=== PATIENT | female | born 1950 | race Caucasian/White ===

== ENCOUNTER → 2018-01-24 09:30 | Outpatient (CLI) | payer OTHER, SELFPAY ==
[2018-01-24 10:26] LABS: Calcium 8.4 mg/dL (8.4-10.2)
[2018-01-24 10:55] LABS: Thyroid Stimulating Hormone 2.03 uIU/mL (0.47-4.68)
[2018-01-27 14:01] LABS: Parathyroid Hormone Int 74 pg/mL (14-64)
== END ==
PROVIDERS: PCP Family Medicine; Visit Provider Internal Medicine Endocrinology, Diabetes & Metabolism
DX: E83.51 Hypocalcemia (principal); Z86.39 Personal history of other endocrine, nutritional and metabolic disease
CPT/HCPCS: 36415; 82310; 83970; 84443

== ENCOUNTER → 2018-02-12 07:48 | Outpatient (CLI) | payer OTHER, SELFPAY ==
[2018-02-12 10:06] LABS: Calcium 9.3 mg/dL (8.4-10.2)
[2018-02-12 10:22] LABS: Vitamin D 25 Hydroxy (D3) 35.9 ng/mL (30.0-100.0)
[2018-02-12 10:35] LABS: Thyroid Stimulating Hormone 0.96 uIU/mL (0.47-4.68)
[2018-02-12 10:43] LABS: Cortisol AM (Before 10AM) 1.09 ug/dL (4.46-22.7)
[2018-02-12 11:28] LABS: Ferritin 18.8 ng/mL (11.1-264)
== END ==
PROVIDERS: PCP Family Medicine; Visit Provider Family Medicine
DX: G25.81 Restless legs syndrome (principal); E83.51 Hypocalcemia; Z86.39 Personal history of other endocrine, nutritional and metabolic disease; E56.9 Vitamin deficiency, unspecified
CPT/HCPCS: 36415; 82306; 82310; 82533; 82728; 83970; 84443

== ENCOUNTER → 2018-07-31 15:41 | Outpatient (CLI) | payer OTHER, SELFPAY ==
[2018-07-31 17:19] LABS: Calcium 9.7 mg/dL (8.4-10.2)
[2018-07-31 17:32] LABS: Vitamin D 25 Hydroxy (D3) 55.6 ng/mL (30.0-100.0)
[2018-07-31 17:44] LABS: Thyroid Stimulating Hormone 1.09 uIU/mL (0.47-4.68)
[2018-08-04 14:25] LABS: Parathyroid Hormone Int 30 pg/mL (14-64)
== END ==
PROVIDERS: PCP Family Medicine; Visit Provider Internal Medicine Endocrinology, Diabetes & Metabolism
DX: E83.51 Hypocalcemia (principal); Z86.39 Personal history of other endocrine, nutritional and metabolic disease; E55.9 Vitamin D deficiency, unspecified
CPT/HCPCS: 36415; 82306; 82310; 83970; 84443

== ENCOUNTER → 2018-09-11 16:16 | Outpatient (CLI) | payer OTHER, SELFPAY ==
--- NOTE | 2018-09-11 16:18 | DI.RAD.S_ITS ---
PROCEDURE: XR TOE RT MIN 2V INDICATIONS: previous fracture of right big toe TECHNIQUE: 3 views of the first toe(s) acquired. COMPARISON: [facility], CR, XR FOOT 3VW LT, 11/22/2015, 11:08. FINDINGS: Bones: No definite acute fractures or dislocations found, but there is what appears to be a mildly comminuted healing fracture involving the middle and distal thirds of the first proximal phalanx. No suspicious bony lesions. Soft tissues: No suspicious soft tissue densities. IMPRESSION: Healing first proximal phalanx fracture in virtual anatomic alignment. Dictated by: Robson Hurst M.D. on 09/11/2018 at 16:41 Approved by: Robson Hurst M.D. on 09/11/2018 at 16:43
== END ==
PROVIDERS: PCP Family Medicine; Visit Provider Family Medicine
DX: S92.421D Displaced fracture of distal phalanx of right great toe, subsequent encounter for fracture with routine healing (principal)
CPT/HCPCS: 73660

== ENCOUNTER → 2018-09-24 10:23 | Outpatient (CLI) | payer OTHER, SELFPAY | PROVIDERS: PCP Family Medicine; Visit Provider Internal Medicine Endocrinology, Diabetes & Metabolism | DX: M85.851 Other specified disorders of bone density and structure, right thigh (principal); Z78.0 Asymptomatic menopausal state; E07.9 Disorder of thyroid, unspecified; E21.3 Hyperparathyroidism, unspecified; K92.9 Disease of digestive system, unspecified; Z90.722 Acquired absence of ovaries, bilateral; Z87.891 Personal history of nicotine dependence | CPT/HCPCS: 77080 ==

== ENCOUNTER → 2018-12-07 11:22 | Outpatient (CLI) | payer OTHER, SELFPAY | PROVIDERS: PCP Family Medicine; Visit Provider Physician Assistant | DX: J02.9 Acute pharyngitis, unspecified (principal) | CPT/HCPCS: 87070 ==

== ENCOUNTER 2019-02-04 10:30 | Outpatient (RCR) | payer OTHER, SELFPAY ==
--- NOTE | 2019-02-02 17:35 | PT.OPPOC ---
Current Diagnoses Pain in unspecified hip (02/02/19) Provider Visit Care Team Role Provider Type Adri Garrett DO Primary Care Provider Physician Specialty: [facility] Address: [address] [place] [address], [address] Email: [email or web address] ARLEN Funes Attending Provider Advanced Reed Or Wind Instrument Repairer Specialty: [facility] Address: [address] [place] [address], [id number] Email: Plan Of Care PT-OP-T Assessment and Plan Start: 02/02/19 10:30 Freq: Status: Active Protocol: Document 02/02/19 17:35 EA (Rec: 02/03/19 15:58 EA [id number]) Physical Therapy Assessment Rehab Potential Rehabilitation Potential Good Evaluation Complexity Number of Personal Factors/Comorbidities 3 or More Number of Body Systems Impaired 3 Clinical Presentation at Evaluation Evolving Impairments Impairments Pain Posture ROM Soft Tissue Mobility Strength Goals Three Impairment Impaired distance mobility Residential Goal (LTG) Patient will ambulate > 2 miles with no increase of symptoms LTG Duration 5 wks Two Impairment LEFS score of 40/80 Residential Goal (LTG) LEFS score of > 55/80 LTG Duration 5 wks One Impairment No HEP in place Sink Cutter Goal (LTG) Patient will exhibit independent safe home exercises program to improve recovery LTG Duration 4 wks Assessment Summary Assessment Pleasant 68 y/o female patient with a referring diagnosis of LBP and hip pain. Today patient presented with mobility difficulty due to left hip pain. Assessment reveals left hip joint dysfunction with tests positive for hip joint DJD and bursitis. Lumbosacral tests reveals SI joint dysfunction with possible muscular strain to lumbosacral region. In addition from history taking of her regular physical activities, patient possible performing exercises with faulty form that may be the cause of low back issues. Patient shows no neural compression affectation. Due to above mentioned dysfunction, patient unable to perform full functional tasks that she was used to perform without limitation. Patient would greatly benefit with skilled PT to address the issue. Physical Therapy Plan Frequency and Duration Frequency of Treatment 2x/Week Duration of Treatment 8 wks Plan of Care Start Date 02/02/19 Plan of Care End Date 04/06/19 Therapeutic Interventions Therapeutic Interventions Gait Training Home Exercise Program Joint Mobilizations Manual Therapy Patient/Caregiver Education Self-Care/Home Management Modalities Electric Stimulation Hot Packs Iontophoresis Ultrasound Next Visit Focus/Plan Next Note Type Treatment Note Next Visit Plan HEP with images; flexibiity, manual and modalities for pain . Plan of Care Dates Plan of Care Start Date 02/02/19 Plan of Care End Date 04/06/19 Please Sign and Return: I have reviewed this Plan of Care and certify that the skilled therapy services above are required to meet the patient?s needs. Physician Signature Date Printed Name and Credentials Clinical Instructor Signature Printed Name and Credentials
--- NOTE | 2019-02-02 17:35 | PT.OIE ---
Current Diagnoses Pain in unspecified hip (02/02/19) Past Medical History (Last Reviewed 06/02/18 @ 11:06 by Adri Garrett DO) Essential tremor (Chronic ~1995) Fibromyalgia (Chronic ~1994) Gastroenteritis (Chronic ~2013) Hypothyroidism (Chronic) Osteoporosis (Chronic ~2014) Tenosynovitis, de Quervain (Chronic ~2014) Ulcer (Chronic ~2013) Past Surgical History (Last Reviewed 06/02/18 @ 11:06 by Adri Garrett DO) Status post hysterectomy Status post parathyroidectomy Provider Visit Care Team Role Provider Type Adri Garrett DO Primary Care Provider Physician Specialty: [facility] Address: [address] [place] [address] Email: [email or web address] ARLEN Funes Attending Provider Advanced Auditing Control Clerk Specialty: [facility] Address: [address] [place] [address] Email: Physical Therapy Initial Evaluation PT-OP-A Visit Information Start: 02/02/19 10:30 Freq: Status: Active Protocol: Document 02/02/19 17:35 EA (Rec: 02/03/19 15:58 EA [id number]) Out-Patient Physical Therapy Visit Information Visit Information Visit Type Initial Evaluation Visit Start Time 09:45 Visit Stop Time 10:30 Total Visit Minutes 40 Visit Number 1 Evaluation Information Evaluation Date 02/02/19 PT-OP-B Current Condition Start: 02/02/19 10:30 Freq: Status: Active Protocol: Document 02/02/19 17:35 EA (Rec: 02/03/19 15:58 EA [id number]) Current Condition History of Current Condition Onset Date a year ago Current Complaints Low back and left localized pain History of Current Condition Patient reports present condition of low back and left hip pain started gradually since 2 years ago; she denies any significant injury or medical history that could relate to the issues. She reports she likes to perform outdoor walks, yoga and abdominal exercises. She mentioned that pain management was mainly with heat and rests. She reports that elbow pain complaint is not the issue anymore and would like to eliminate as the complaints . Prior Treatments and Tests None identified to treatment and diagnostic imaging Future Testing and Treatments Planned Non identified. Treatment Goals Patient/Caregiver Goals 1. I wanna be more mobile 2. I would like to go for the trip this march Prior Functional Status Baseline Function- ADL's Independent Baseline Function- Mobility Independent Baseline Function- Gait > 2 miles with no symptoms a year ago Baseline Function- Work/School Retired Baseline Function- Recreation/Hobbies Able to perform fitness exercises, daily outdoor walking, yoga classes Current Functional Impairments (Reported) Functional Limitations- ADL's Independent but diifculty with activities that requires bending and lifting on days of increased symptoms Functional Limitations- Mobility/Gait Indep with no AD Functional Limitations- Work/School Retired Functional Limitations- Recreation/ Unable to perform regular Hobbies fitness exercises, Personal Factors Other Personal Factors That May Effect Fibromyalgia, Depression, Therapy/Recovery osteoporosis, controlled BP, intention tremor. PT-OP-C Subjective Start: 02/02/19 10:30 Freq: Status: Active Protocol: Document 02/02/19 17:35 EA (Rec: 02/03/19 15:58 EA [id number]) OP-PT Subjective Patient Comments Patient Comments I would like to go in the trip this march without limitation. Patient Reported Progress Worse Patient Questionnaires Lower Extremity Functional Scale LEFS Score 40 LEFS Impairment 40 to 59% Impaired (Score 32- 47) OP-PT Pain Assessment Pain Assessment Grid Paper Pain Assessment Grid Completed Yes Location Bilateral Lower Back Pain Location Details low back, left hip Intensity 6 Description Aching Pulling Tightness Frequency Intermittent Pain Aggravating Factors Changing Position Activity Exercise Pain Alleviating Factors Cold Heat Exercise Massage Other Pain Alleviating Factors Stertching PT-OP-J Posture/Palpation/Skin Start: 02/02/19 10:30 Freq: Status: Active Protocol: Document 02/02/19 17:35 EA (Rec: 02/03/19 15:58 EA [id number]) Palpation Assessment Location One Palpation Location Lumbosacral fascia, quadratus lumborum, paralumbars SI joint , ITB Palpation Findings Soft Tissue Tightness Tenderness PT-OP-K Range of Motion Start: 02/02/19 10:30 Freq: Status: Active Protocol: Document 02/02/19 17:35 EA (Rec: 02/03/19 15:58 EA [id number]) Lumbar Spine Range of Motion Lumbar Spine Active Percentage Testing Position Standing Flexion 100 Extension 90 Rotation Left 90 Rotation Right 90 Lateral Flexion Left 85 Lateral Flexion Right 85 ROM Limitations Soft Tissue Tightness Hip Goniometric Range of Motion Hip Right Active Hip ROM WFL Yes Testing Position Supine Left Active Hip ROM WFL Yes Testing Position Supine Knee Goniometric Range of Motion Knee Right Knee ROM WFL Yes Patient Position Supine Left Knee ROM WFL Yes Patient Position Supine PT-OP-L Special Tests Start: 02/02/19 10:30 Freq: Status: Active Protocol: Document 02/02/19 17:35 EA (Rec: 02/03/19 15:58 EA [id number]) Special Tests Lumbar Spine Special Tests Other- 1 Test Results Gaenslens + Slump Test Results relief of symptoms Straight Leg Raise Test Results - Hip Special Tests Scour Test Test Results - SONIA Test Results + PT-OP-M Strength Start: 02/02/19 10:30 Freq: Status: Active Protocol: Document 02/02/19 17:35 EA (Rec: 02/03/19 15:58 EA [id number]) Trunk Strength Trunk Manual Muscle Testing Testing Position Sitting Flexion 5 Normal Extension 5 Normal Rotation Left 5 Normal Rotation Right 5 Normal Lateral Flexion Left 5 Normal Lateral Flexion Right 5 Normal Hip Strength Hip Manual Muscle Testing Right Reason Not Measured WFL PT-OP-Q Treatments Start: 02/02/19 10:30 Freq: Status: Active Protocol: Document 02/02/19 17:35 EA (Rec: 02/03/19 15:58 EA [id number]) Self-Care/Home Management Treatment Education Patient Education Body Mechanics Home Exercise Program Pain Management Posture PT-OP-T Assessment and Plan Start: 02/02/19 10:30 Freq: Status: Active Protocol: Document 02/02/19 17:35 EA (Rec: 02/03/19 15:58 EA [id number]) Physical Therapy Assessment Rehab Potential Rehabilitation Potential Good Evaluation Complexity Number of Personal Factors/Comorbidities 3 or More Number of Body Systems Impaired 3 Clinical Presentation at Evaluation Evolving Impairments Impairments Pain Posture ROM Soft Tissue Mobility Strength Goals Three Impairment Impaired distance mobility Jail Goal (LTG) Patient will ambulate > 2 miles with no increase of symptoms LTG Duration 5 wks Two Impairment LEFS score of 40/80 Um Rn Goal (LTG) LEFS score of > 55/80 LTG Duration 5 wks One Impairment No HEP in place Um Rn Goal (LTG) Patient will exhibit independent safe home exercises program to improve recovery LTG Duration 4 wks Assessment Summary Assessment Pleasant 68 y/o female patient with a referring diagnosis of LBP and hip pain. Today patient presented with mobility difficulty due to left hip pain. Assessment reveals left hip joint dysfunction with tests positive for hip joint DJD and bursitis. Lumbosacral tests reveals SI joint dysfunction with possible muscular strain to lumbosacral region. In addition from history taking of her regular physical activities, patient possible performing exercises with faulty form that may be the cause of low back issues. Patient shows no neural compression affectation. Due to above mentioned dysfunction, patient unable to perform full functional tasks that she was used to perform without limitation. Patient would greatly benefit with skilled PT to address the issue. Physical Therapy Plan Frequency and Duration Frequency of Treatment 2x/Week Duration of Treatment 8 wks Plan of Care Start Date 02/02/19 Plan of Care End Date 04/06/19 Therapeutic Interventions Therapeutic Interventions Gait Training Home Exercise Program Joint Mobilizations Manual Therapy Patient/Caregiver Education Self-Care/Home Management Modalities Electric Stimulation Hot Packs Iontophoresis Ultrasound Next Visit Focus/Plan Next Note Type Treatment Note Next Visit Plan HEP with images; flexibiity, manual and modalities for pain .
--- NOTE | 2019-02-04 12:12 | PT.OTN ---
Current Diagnoses Pain in unspecified hip (02/04/19) Physical Therapy Treatment Note PT-OP-A Visit Information Start: 02/02/19 10:30 Freq: Status: Active Protocol: Document 02/04/19 11:10 EA (Rec: 02/04/19 11:16 EA [id number]) Out-Patient Physical Therapy Visit Information Visit Information Visit Type Treatment Note Visit Start Time 10:30 Visit Stop Time 11:15 Total Visit Minutes 45 Visit Number 2 PT-OP-B Current Condition Start: 02/02/19 10:30 Freq: Status: Active Protocol: Document 02/02/19 17:35 EA (Rec: 02/03/19 15:58 EA [id number]) Current Condition History of Current Condition Onset Date a year ago Current Complaints Low back and left localized pain History of Current Condition Patient reports present condition of low back and left hip pain started gradually since 2 years ago; she denies any significant injury or medical history that could relate to the issues. She reports she likes to perform outdoor walks, yoga and abdominal exercises. She mentioned that pain management was mainly with heat and rests. She reports that elbow pain complaint is not the issue anymore and would like to eliminate as the complaints . Prior Treatments and Tests None identified to treament and diagnostic imaging Future Testing and Treatments Planned Non identified. Treatment Goals Patient/Caregiver Goals 1. I wanna be more mobile 2. I would like to go for the trip this coming March Prior Functional Status Baseline Function- ADL's Independent Baseline Function- Mobility Independent Baseline Function- Gait > 2 miles with no symptoms a year ago Baseline Function- Work/School Retired Baseline Function- Recreation/Hobbies Able to perform fitness exercises, daily outdoor walking, yoga classes Current Functional Impairments (Reported) Functional Limitations- ADL's Independent but diifculty with activities that requires bending and lifting on days of increased symptoms Functional Limitations- Mobility/Gait Indep with no AD Functional Limitations- Work/School Retired Functional Limitations- Recreation/ Unable to perform regular Hobbies fitness exercises, Personal Factors Other Personal Factors That May Effect Fibromyalgia, Depression, Therapy/Recovery osteoporosis, controlled BP, intention tremor. PT-OP-C Subjective Start: 02/02/19 10:30 Freq: Status: Active Protocol: Document 02/04/19 11:10 EA (Rec: 02/04/19 11:16 EA [id number]) OP-PT Subjective Patient Comments Patient Comments I dont have enough sleep; states it has been going on in mre than ten years. Patient is quite teary and frustrated about her health after throidectomy which she blames from gaining weight. She states that she bout sit up machine where legs can be hook . PT-OP-J Posture/Palpation/Skin Start: 02/02/19 10:30 Freq: Status: Active Protocol: Document 02/02/19 17:35 EA (Rec: 02/03/19 15:58 EA [id number]) Palpation Assessment Location One Palpation Location Lumbosacral fascia, quadratus lumborum, paralumbars SI joint , ITB Palpation Findings Soft Tissue Tightness Tenderness PT-OP-K Range of Motion Start: 02/02/19 10:30 Freq: Status: Active Protocol: Document 02/02/19 17:35 EA (Rec: 02/03/19 15:58 EA [id number]) Lumbar Spine Range of Motion Lumbar Spine Active Percentage Testing Position Standing Flexion 100 Extension 90 Rotation Left 90 Rotation Right 90 Lateral Flexion Left 85 Lateral Flexion Right 85 ROM Limitations Soft Tissue Tightness Hip Goniometric Range of Motion Hip Right Active Hip ROM WFL Yes Testing Position Supine Left Active Hip ROM WFL Yes Testing Position Supine Knee Goniometric Range of Motion Knee Right Knee ROM WFL Yes Patient Position Supine Left Knee ROM WFL Yes Patient Position Supine PT-OP-L Special Tests Start: 02/02/19 10:30 Freq: Status: Active Protocol: Document 02/02/19 17:35 EA (Rec: 02/03/19 15:58 EA [id number]) Special Tests Lumbar Spine Special Tests Other- 1 Test Results Gaenslens + Slump Test Results relief of symptoms Straight Leg Raise Test Results - Hip Special Tests Scour Test Test Results - SONIA Test Results + PT-OP-M Strength Start: 02/02/19 10:30 Freq: Status: Active Protocol: Document 02/02/19 17:35 EA (Rec: 02/03/19 15:58 EA [id number]) Trunk Strength Trunk Manual Muscle Testing Testing Position Sitting Flexion 5 Normal Extension 5 Normal Rotation Left 5 Normal Rotation Right 5 Normal Lateral Flexion Left 5 Normal Lateral Flexion Right 5 Normal Hip Strength Hip Manual Muscle Testing Right Reason Not Measured WFL PT-OP-Q Treatments Start: 02/02/19 10:30 Freq: Status: Active Protocol: Document 02/04/19 11:10 EA (Rec: 02/04/19 11:16 EA [id number]) Cardio Equipment Recumbent Stepper (Sci-Fit) Duration (Minutes) 6 Resistance 1 Seat Position 8 Therapeutic Exercises Supine Exercises 6 Supine Exercise Name piriformis stretch 5 Supine Exercise Name SKTC Reps/Minutes x 3 repsx 15SH 4 Supine Exercise Name PPT-partial sit up Reps/Minutes x 5SH x 5 reps 3 Supine Exercise Name PPT with SLR Reps/Minutes x 10 reps 2 Supine Exercise Name PPT with marching Reps/Minutes x 10 reps 1 Supine Exercise Name PPT Reps/Minutes x 10 reps Sidelying Exercises 1 Sidelying Exercise Name clamshell Reps/Minutes x 15 reps PT-OP-R Modalities Start: 02/02/19 10:30 Freq: Status: Active Protocol: Document 02/04/19 11:10 EA (Rec: 02/04/19 11:16 EA [id number]) Electric Stimulation Electric Stimulation Interferential Current (IFC) Body Location Upper gluteal and paralumbars Duration (Minutes) 15 Intensity 17 Patient Position Hooklying Combined With Heat/Cold Hot Pack PT-OP-T Assessment and Plan Start: 02/02/19 10:30 Freq: Status: Active Protocol: Document 02/04/19 12:07 EA (Rec: 02/04/19 12:12 EA [id number]) Physical Therapy Assessment Assessment Summary Assessment Patient did not tolerate manual PT as she refused it due to fibromyalgia and very hypersensitive. Patient demonstrates a lot of emotional issues at this time and i was able to asked her if she wishes to cont with a response of Yes. I also recommended to refrain from leg hotel supplies salesperson abdominal exercises where it would aggravated low back due to weakness of abdominal at this time. Physical Therapy Plan Next Visit Focus/Plan Next Note Type Treatment Note
--- NOTE | 2019-03-04 12:58 | PT-OP ANOTE ---
@ 1215 Spoke to patient today by phone and reports would like to cancel all the remaining schedule as she wants to cont. her Yoga exercises at home.
--- NOTE | 2019-03-22 16:48 | PT.OPDS ---
Current Diagnoses Pain in unspecified hip (02/04/19) Provider Visit Care Team Role Provider Type Adri Garrett DO Primary Care Provider Physician Specialty: [facility] Address: [address], [facility] [address], [place], [address] Email: [email or web address] ARLEN Funes Attending Provider Advanced Medical Staffing Coordinator Specialty: [facility] Address: [address] [place] [address], [place], [address] Email: [email or web address] Visit Number Visit Number 2 Discharge Summary PT-OP-B Current Condition Start: 02/02/19 10:30 Freq: Status: Active Protocol: Document 02/02/19 17:35 EA (Rec: 02/03/19 15:58 EA [id number]) Current Condition History of Current Condition Onset Date a year ago Current Complaints Low back and left localized pain History of Current Condition Patient reports present condition of low back and left hip pain started gradually since 2 years ago; she denies any significant injury or medical history that could relate to the issues. She reports she likes to perform outdoor walks, yoga and abdominal exercises. She mentioned that pain management was mainly with heat and rests. She reports that elbow pain complaint is not the issue anymore and would like to eliminate as the complaints . Prior Treatments and Tests None identified to treament and diagnostic imaging Future Testing and Treatments Planned Non identified. Treatment Goals Patient/Caregiver Goals 1. I wanna be more mobile 2. I would like to go for the trip this coming March Prior Functional Status Baseline Function- ADL's Independent Baseline Function- Mobility Independent Baseline Function- Gait > 2 miles with no symptoms a year ago Baseline Function- Work/School Retired Baseline Function- Recreation/Hobbies Able to perform fitness exercises, daily outdoor walking, yoga classes Current Functional Impairments (Reported) Functional Limitations- ADL's Independent but diifculty with activities that requires bending and lifting on days of increased symptoms Functional Limitations- Mobility/Gait Indep with no AD Functional Limitations- Work/School Retired Functional Limitations- Recreation/ Unable to perform regular Hobbies fitness exercises, Personal Factors Other Personal Factors That May Effect Fibromyalgia, Depression, Therapy/Recovery osteoporosis, controlled BP, intention tremor. PT-OP-C Subjective Start: 02/02/19 10:30 Freq: Status: Active Protocol: Document 03/22/19 16:46 EA (Rec: 03/22/19 16:47 EA [id number]) OP-PT Subjective Patient Comments Patient Comments Spoke to patient on 03/04/19 and would like to discharge from PT; states she has been doing her yoga regularly. PT-OP-J Posture/Palpation/Skin Start: 02/02/19 10:30 Freq: Status: Active Protocol: Document 02/02/19 17:35 EA (Rec: 02/03/19 15:58 EA [id number]) Palpation Assessment Location One Palpation Location Lumbosacral fascia, quadratus lumborum, paralumbars SI joint , ITB Palpation Findings Soft Tissue Tightness Tenderness PT-OP-K Range of Motion Start: 02/02/19 10:30 Freq: Status: Active Protocol: Document 02/02/19 17:35 EA (Rec: 02/03/19 15:58 EA [id number]) Lumbar Spine Range of Motion Lumbar Spine Active Percentage Testing Position Standing Flexion 100 Extension 90 Rotation Left 90 Rotation Right 90 Lateral Flexion Left 85 Lateral Flexion Right 85 ROM Limitations Soft Tissue Tightness Hip Goniometric Range of Motion Hip Right Active Hip ROM WFL Yes Testing Position Supine Left Active Hip ROM WFL Yes Testing Position Supine Knee Goniometric Range of Motion Knee Right Knee ROM WFL Yes Patient Position Supine Left Knee ROM WFL Yes Patient Position Supine PT-OP-L Special Tests Start: 02/02/19 10:30 Freq: Status: Active Protocol: Document 02/02/19 17:35 EA (Rec: 02/03/19 15:58 EA [id number]) Special Tests Lumbar Spine Special Tests Other- 1 Test Results Gaenslens + Slump Test Results relief of symptoms Straight Leg Raise Test Results - Hip Special Tests Scour Test Test Results - SONIA Test Results + PT-OP-M Strength Start: 02/02/19 10:30 Freq: Status: Active Protocol: Document 02/02/19 17:35 EA (Rec: 02/03/19 15:58 EA [id number]) Trunk Strength Trunk Manual Muscle Testing Testing Position Sitting Flexion 5 Normal Extension 5 Normal Rotation Left 5 Normal Rotation Right 5 Normal Lateral Flexion Left 5 Normal Lateral Flexion Right 5 Normal Hip Strength Hip Manual Muscle Testing Right Reason Not Measured WFL PT-OP-T Assessment and Plan Start: 02/02/19 10:30 Freq: Status: Active Protocol: Document 03/22/19 16:46 EA (Rec: 03/22/19 16:47 EA [id number]) Physical Therapy Assessment Assessment Summary Assessment Discharge due to patient request. She has been doing her regular fitness yoga, Physical Therapy Plan Discharge Physical Therapy Discharge Reasons Patient Request
== END 2019-03-26 09:19 | disposition home or self-care (01) ==
LOC: PHYS 10:30
PROVIDERS: PCP Family Medicine; Visit Provider Nurse Practitioner
DX: M25.559 Pain in unspecified hip (principal)
CPT/HCPCS: 97014; 97110; 97162; 97535; G0283

== ENCOUNTER → 2019-03-09 09:25 | Outpatient (CLI) | payer OTHER, SELFPAY ==
[2019-03-09 09:32] LABS: RBC Urine None Seen (0-5/HPF); WBC Urine None Seen (0-5/HPF)
[2019-03-09 10:07] LABS: Appearance Urine UA CLEAR; Bilirubin Urine UA NEGATIVE (NEGATIVE); Color Urine UA YELLOW; Glucose Urine UA NEGATIVE (Negative); Ketones Urine UA NEGATIVE (NEGATIVE); Leukocyte Esterase Urine UA NEGATIVE (NEGATIVE); Nitrite Urine UA NEGATIVE (Negative); Occult Blood Urine UA NEGATIVE (Negative); Protein Urine UA NEGATIVE (Negative); Specific Gravity Urine UA <=1.005 (1.000-1.035); Urobilinogen Urine UA 0.2 E.U./dL (0.2); pH Urine UA 5.5 (4.5-8.0)
[2019-03-09 10:21] LABS: Bacteria Urine Occasional (0-1); Culture Indicated Urine Cult Not Indicated; Squamous Epithelial Cell Urine 10-30 /HPF (0-5/HPF)
[2019-03-09 10:29] LABS: Albumin 4.1 g/dL (3.5-5.0); BUN Creatinine Ratio 24.4 (6-22); Blood Urea Nitrogen 22 mg/dL (7-17); Calcium 9.1 mg/dL (8.4-10.2); Carbon Dioxide 29 mmol/L (22-32); Chloride 103 mmol/L (98-107); Creatine Kinase 61 U/L (30-135); Estimated Glomerular Filt Rate > 60.0 mL/min (>60); Glucose 113 mg/dL (80-110); HEMOLYSIS < 15 (0-50); Phosphorous 3.7 mg/dL (2.8-4.1); Potassium 4.7 mmol/L (3.4-5.1); Sodium 140 mmol/L (137-145)
== END ==
PROVIDERS: PCP Family Medicine; Visit Provider Family Medicine
DX: N28.9 Disorder of kidney and ureter, unspecified (principal); M79.7 Fibromyalgia
CPT/HCPCS: 36415; 80069; 81001; 82550

== ENCOUNTER → 2019-04-07 09:30 | Outpatient (CLI) | payer OTHER, SELFPAY ==
[2019-04-07 10:59] LABS: BUN Creatinine Ratio 28.8 (6-22); Blood Urea Nitrogen 23 mg/dL (7-17); Estimated Glomerular Filt Rate > 60.0 mL/min (>60)
--- NOTE | 2019-04-07 11:20 | DI.CT.S_ITS ---
PROCEDURE: CT SOFT TISSUE NECK W CON INDICATIONS: Left submandibular mass TECHNIQUE: After the administration of intravenous contrast, 3.0 mm axial sections acquired from the sella to the aortic arch. Additional oblique axial 3.0 mm sections acquired through the pharynx. 3 mm thick coronal and sagittal reformats were generated. For radiation dose reduction, the following was used: automated exposure control. COMPARISON: [facility], CT, THORAX WITHOUT CONTRAST, 04/29/2013, 10:43. FINDINGS: Image quality: Diagnostic, with note made of motion artifact. Lymph nodes: No enlarged lymph nodes seen throughout the neck. Vessels: Visualized vasculature appears patent. Neck spaces: The area of clinical concern of the left superior lateral neck is marked. At this site, no masses or enlarged lymph nodes are seen. The oropharynx, nasopharynx, and pharynx demonstrate no mucosal lesions. The vocal cords, false vocal cords, pyriform sinuses, epiglottis, vallecula, and tongue base all appear normal. Extramucosal spaces appear unremarkable. Glands: The parotid and submandibular glands appear normal. Thyroid gland demonstrates no significant CT abnormality. Miscellaneous: Visualized brain and orbits appear normal. Lung apices appear clear. Superficial soft tissues appear normal. Bones: No suspicious bony lesions. Visualized sinuses and mastoids appear unremarkable. At least moderate lower cervical spine degenerative changes are seen. IMPRESSION: No masses can be seen at the area of clinical concern. No masses or enlarged lymph nodes are seen elsewhere. Dictated by: Remigio Mckeon M.D. on 04/07/2019 at 12:07 Approved by: Remigio Mckeon M.D. on 04/07/2019 at 12:11
== END ==
PROVIDERS: PCP Family Medicine; Visit Provider Family Medicine
DX: R22.1 Localized swelling, mass and lump, neck (principal); R22.0 Localized swelling, mass and lump, head
CPT/HCPCS: 36415; 70491; 82565; 84520; Q9967

== ENCOUNTER → 2019-08-26 12:09 | Outpatient (CLI) | payer MEDICARE, SELFPAY ==
--- NOTE | 2019-08-26 12:12 | DI.RAD.S_ITS ---
PROCEDURE: XR PELVIS 1-2V INDICATIONS: point tenderness on sacroiliac joint TECHNIQUE: Single view(s) of the pelvis acquired. COMPARISON: [facility], PELVIS 1 OR 2 VIEWS, 10/28/2016, 15:41. FINDINGS: Bones: No fractures or dislocations. No suspicious bony lesions. The sacroiliac joints are symmetric without abnormal sclerosis or erosions. Soft tissues: Visualized bowel gas pattern is normal. No suspicious soft tissue calcifications. IMPRESSION: Pelvic radiograph without acute osseous abnormalities or suspicious intraosseous abnormalities. Dictated by: Domenic Kamara M.D. on 08/26/2019 at 21:45 Approved by: Domenic Kamara M.D. on 08/26/2019 at 21:46
== END ==
PROVIDERS: PCP Family Medicine; Visit Provider Family Medicine
DX: M53.3 Sacrococcygeal disorders, not elsewhere classified (principal)
CPT/HCPCS: 72170

== ENCOUNTER → 2019-09-15 13:17 | Outpatient (CLI) | payer MEDICARE, SELFPAY ==
[2019-09-15 13:56] LABS: Add Manual Diff / Slide Review NO; Basophils Absolute Auto 100 /uL (0-100); Basophils Percent Auto 1.1 % (0-2); Eosinophils Absolute Auto 200 /uL (0-450); Hematocrit 38.6 % (36-46); Lymphocytes Absolute Auto 1000 /uL (1100-4500); Mean Corpuscular HGB Conc 33.6 % (30-36); Mean Corpuscular Hemoglobin 29.2 PG (26-34); Mean Corpuscular Volume 86.9 fL (80-100); Monocytes Absolute Auto 500 /uL (0-900); Neutrophils Absolute Auto 3000 /uL (1500-7000); Neutrophils Percent Auto 63.9 % (50-75); Platelet Count 122 X10^3/uL (150-400); Red Blood Cell Count 4.45 X10^6/uL (4.0-5.2); White Blood Cell Count 4.8 X10^3/uL (4.5-11.0)
[2019-09-15 14:48] LABS: Alanine Aminotransferase 29 IU/L (<35); Albumin 3.9 g/dL (3.5-5.0); Albumin Globulin Ratio 1.3 (1.0-2.8); Alkaline Phosphatase 86 U/L (38-126); Aspartate Aminotransferase 26 IU/L (14-36); BUN Creatinine Ratio 26.3 (6-22); Bilirubin Total 0.2 mg/dL (0.2-1.3); Blood Urea Nitrogen 21 mg/dL (7-17); Calcium 8.8 mg/dL (8.4-10.2); Carbon Dioxide 29 mmol/L (22-32); Chloride 106 mmol/L (98-107); Estimated Glomerular Filt Rate > 60.0 mL/min (>60); Glucose 106 mg/dL (80-110); HEMOLYSIS < 15 (0-50); Potassium 3.7 mmol/L (3.4-5.1); Sodium 140 mmol/L (137-145); Total Protein 6.9 g/dL (6.3-8.2)
[2019-09-15 15:24] LABS: Ferritin 19 ng/mL (11-264)
[2019-09-15 15:37] LABS: Vitamin B12 306 pg/mL (239-931)
[2019-09-15 17:17] LABS: TSH w/ Reflex to FT4 3.54 uIU/mL (0.47-4.68)
[2019-09-18 13:38] LABS: Calcium 9.4 mg/dL (8.6-10.4); Parathyroid Hormone, Intact 39 pg/mL (14-64)
== END ==
PROVIDERS: PCP Family Medicine; Referring Provider Family Medicine; Visit Provider Family Medicine
DX: G62.9 Polyneuropathy, unspecified (principal)
CPT/HCPCS: 36415; 80053; 82310; 82607; 82728; 83970; 84443; 85025

== ENCOUNTER → 2019-11-26 17:44 | Outpatient (CLI) | payer MEDICARE, SELFPAY ==
--- NOTE | 2019-11-26 17:46 | DI.US.S_ITS ---
PROCEDURE: US PERIPH VENOUS LOW EXTREM BI INDICATIONS: BILAT LOWER EXTREMITY EDEMA TECHNIQUE: Real-time imaging, as well as color and pulse Doppler interrogation, were performed of the deep veins of both legs from the inguinal ligament to the popliteal fossa. COMPARISON: None. FINDINGS: Right: The common femoral, femoral and popliteal veins are normally compressible, and free of intraluminal thrombus. Color and pulse Doppler demonstrate normal phasic intravascular flow. There is normal augmentation response to distal compression maneuver. Left: The common femoral, femoral and popliteal veins are normally compressible, and free of intraluminal thrombus. Color and pulse Doppler demonstrate normal phasic intravascular flow. There is normal augmentation response to distal compression maneuver. IMPRESSION: No evidence of DVT in visualized bilateral lower extremity veins. Dictated by: Gigi Dixon M.D. on 11/26/2019 at 18:34 Approved by: Gigi Dixon M.D. on 11/26/2019 at 18:35
== END ==
PROVIDERS: PCP Family Medicine; Referring Provider Family Medicine; Visit Provider Family Medicine
DX: R60.0 Localized edema (principal)
CPT/HCPCS: 93970

== ENCOUNTER → 2019-12-06 10:46 | Outpatient (CLI) | payer MEDICARE, SELFPAY ==
--- NOTE | 2019-12-06 10:47 | DI.RAD.S_ITS ---
PROCEDURE: XR FOOT RT MIN 3V INDICATIONS: foot pain TECHNIQUE: 3 views of the foot were acquired. COMPARISON: None. FINDINGS: Bones: No fractures or dislocations. No suspicious bony lesions. Soft tissues: No tibiotalar joint effusion. Achilles tendon appears normal. IMPRESSION: No fracture. No acute osseous lesion. If symptoms and/or clinical suspicion for pathology persists, further assessment with repeat radiographs (7-10 days) or advanced imaging (e.g. CT, MRI or bone scan) may be helpful. Dictated by: Nidia Summers MD, PhD on 12/06/2019 at 13:47 Approved by: Nidia Summers MD, PhD on 12/06/2019 at 13:47
--- NOTE | 2019-12-06 10:47 | DI.RAD.S_ITS ---
PROCEDURE: XR FOOT LT MIN 3V INDICATIONS: foot pain TECHNIQUE: 3 views of the foot were acquired. COMPARISON: [facility], , FOOT 3V LEFT, 10/26/2015, 10:15. FINDINGS: Bones: Metatarsal fracture is healed in anatomic alignment. No acute fracture or dislocation. Soft tissues: No tibiotalar joint effusion. Achilles tendon appears normal. IMPRESSION: No acute fracture. No acute osseous lesion. If symptoms and/or clinical suspicion for pathology persists, further assessment with repeat radiographs (7-10 days) or advanced imaging (e.g. CT, MRI or bone scan) may be helpful. Dictated by: Nidia Summers MD, PhD on 12/06/2019 at 13:45 Approved by: Nidia Summers MD, PhD on 12/06/2019 at 13:47
== END ==
PROVIDERS: PCP Family Medicine; Referring Provider Family Medicine; Visit Provider Family Medicine
DX: M79.671 Pain in right foot (principal); M79.672 Pain in left foot; S92.302S Fracture of unspecified metatarsal bone(s), left foot, sequela
CPT/HCPCS: 73630

== ENCOUNTER → 2019-12-31 15:51 | Outpatient (CLI) | payer MEDICARE, SELFPAY ==
[2019-12-31 17:21] LABS: Erythrocyte Sedimentation Rate 10 MM/HR (0-20)
[2019-12-31 17:46] LABS: HEMOLYSIS < 15 (0-50); Iron 90 ug/dL (37-170)
[2019-12-31 17:51] LABS: Rheumatoid Factor < 8.6 IU/mL (<12.0)
[2019-12-31 17:54] LABS: C-Reactive Protein Quant < 0.5 mg/dL (<1.0)
[2019-12-31 17:57] LABS: Percent Iron Saturation 29 % (15-50); Total Iron Binding Capacity 307 ug/dL (265-497); Transferrin 253 mg/dL (206-381)
[2019-12-31 18:04] LABS: Vitamin D 25 Hydroxy (D3) 63.9 ng/mL (30.0-100.0)
[2020-01-03 21:10] LABS: CCP Antibodies IgG/IgA 127 units (0-19)
[2020-01-04 10:40] LABS: Immunoglobulin A, Serum 255 mg/dL (87-352); Immunoglobulin G,Serum 945 mg/dL (586-1602); Immunoglobulin M, Serum 49 mg/dL (26-217)
[2020-01-04 14:08] LABS: Albumin 3.6 g/dL (2.9-4.4); Alpha-1-Globulin 0.3 g/dL (0.0-0.4); Alpha-2-Globulin 0.7 g/dL (0.4-1.0); Protein, Total 6.6 g/dL (6.0-8.5)
== END ==
PROVIDERS: PCP Family Medicine; Referring Provider Psychiatry & Neurology Neurology; Visit Provider Psychiatry & Neurology Neurology
DX: R20.2 Paresthesia of skin (principal); M79.609 Pain in unspecified limb
CPT/HCPCS: 36415; 82306; 82784; 83036; 83540; 83550; 84155; 84165; 85651; 86140; 86200; 86334; 86430

== ENCOUNTER → 2020-02-08 08:14 | Outpatient (CLI) | payer MEDICARE, SELFPAY ==
[2020-02-08] MEDS: COSYNTROPIN 0.25 MG VIAL IV (08:49)
[2020-02-08 09:00] VITALS: BP 126/70; PULSE 82; RESP 18; TEMP 37.1; O2SAT 95
[2020-02-08 11:29] LABS: Cortisol 30 MIN Post Stim. 23.5 ug/dL
[2020-02-08 11:30] LABS: Cortisol Basline for Stim. 14.1 ug/dL
[2020-02-08 11:30] LABS: Cortisol 60 MIN Post Stim. 26.4 ug/dL
== END ==
PROVIDERS: PCP Family Medicine; Referring Provider Family Medicine; Visit Provider Internal Medicine Rheumatology
DX: E27.40 Unspecified adrenocortical insufficiency (principal); R53.82 Chronic fatigue, unspecified
CPT/HCPCS: 36415; 96374; 96375; J0834

== ENCOUNTER → 2020-05-29 13:56 | Outpatient (ROUT) | payer MEDICARE, SELFPAY | PROVIDERS: PCP Family Medicine; Visit Provider Dermatology | DX: L03.90 Cellulitis, unspecified (principal) | CPT/HCPCS: 87070; 87205 ==

== ENCOUNTER → 2020-08-17 15:41 | Outpatient (CLI) | payer MEDICARE, SELFPAY ==
[2020-08-17 16:00] LABS: Mean Corpuscular HGB Conc 33.3 % (30-36); Mean Corpuscular Hemoglobin 29.1 PG (26-34); Mean Corpuscular Volume 87.4 fL (80-100); Red Blood Cell Count 4.81 X10^6/uL (4.0-5.2); Red Cell Distribution Width 13.2 % (11.6-14.8); White Blood Cell Count 6.1 X10^3/uL (4.5-11.0)
[2020-08-17 16:52] LABS: Neutrophils Absolute Manual 4148 /uL (3000-5900); Total Cells Counted 100
[2020-08-17 16:54] LABS: RBC Morphology Normal Morphology
[2020-08-17 16:56] LABS: Platelet Count 151 X10^3/uL (150-400)
[2020-08-17 17:38] LABS: Alanine Aminotransferase 25 IU/L (<35); Albumin Globulin Ratio 1.4 (1.0-2.8); Alkaline Phosphatase 88 U/L (38-126); Aspartate Aminotransferase 24 IU/L (14-36); BUN Creatinine Ratio 23.5 (6-22); Bilirubin Total 0.2 mg/dL (0.2-1.3); Blood Urea Nitrogen 23 mg/dL (7-17); Calcium 9.2 mg/dL (8.4-10.2); Carbon Dioxide 38 mmol/L (22-32); Chloride 99 mmol/L (98-107); Estimated Glomerular Filt Rate 55.9 mL/min (>60); Globulin 2.9 g/dL (1.7-4.1); Glucose 114 mg/dL (80-110); HEMOLYSIS < 15 (0-50); Potassium 3.4 mmol/L (3.4-5.1); Sodium 138 mmol/L (137-145); Total Protein 6.9 g/dL (6.3-8.2)
[2020-08-17 18:17] LABS: TSH w/ Reflex to FT4 2.81 uIU/mL (0.47-4.68)
[2020-08-18 08:23] LABS: Calcium 9.1 mg/dL (8.7-10.3); Parathyroid Hormone, Intact 38 pg/mL (15-65)
== END ==
PROVIDERS: PCP Family Medicine; Referring Provider Family Medicine; Visit Provider Family Medicine
DX: L29.9 Pruritus, unspecified (principal); D69.6 Thrombocytopenia, unspecified
CPT/HCPCS: 36415; 80053; 82310; 83036; 83970; 84443; 85025